=== PATIENT | female | born 1980 | race Caucasian/White ===

== ENCOUNTER 2017-02-18 08:12 | Emergency (ER) | payer SELFPAY ==
--- NOTE | ~2017-02-18 | CR254 ---
[facility] A Service of [facility] & [facility] RADIOLOGY TEXT RESULTS PATIENT: AMISH GUILLERMO LOCATION: [facility] : 82 UNIT #: [id number] AGE: [address]: Julieta Jimenez APRN SEX: F ORDER DR: [id number] [facility] [address] [place], [place] [address] [id number] MR#: [id number] Acc #: [id number] NAME: AMISH GUILLERMO : 1980 SEX: F STUDY DATE/TIME: 02/18/2017 8:29 UNIT: [facility] ROOM: STUDY DESCRIPTION: CR Toe 2 Views 2Nd Lt Attending Physician: Julieta Jimenez A.P.R.N. Ordering Physician: Ed Doctor [id number] [facility] Primary Care Physician: Dylan Romero M.D. MEDICAL IMAGING REPORT This report is preliminary unless electronic signature is present EXAM 3 views of the left second toe. Date: 02/18/2017 HISTORY Left second toe pain yesterday and today after kicking a log. COMPARISON None. FINDINGS No acute displaced fracture is seen and there is no joint dislocation. No retained radiopaque foreign body is seen within the soft tissues. IMPRESSION No acute abnormality of the left second toe. Dictated by... Karol Diaz M.D. THIS IS AN ELECTRONICALLY VERIFIED REPORT Karol Diaz M.D. at 02/21/2017 8:37 AM JORGE A/meka TD: 02/18/2017 10:37 JOB #: [id number] MEDICAL IMAGING REPORT Page 1 of 1 COPY
[~2017-02-18 08:12] MED LIST: AMOXIL400 MG/51 PO; AZITHROMYCIN250 MG PO; FIORINAL CAPSUL1 CAP PO; IBUPROFEN800 MG PO; LORTAB 5/500 TA1 TA1 PO; MACROBID100 MG PO; SILVADENE TOP; TYLENOL #3 PO
== END 2017-02-18 11:12 | disposition home or self-care (01) ==
LOC: CED 08:12
DX: S90.122A Contusion of left lesser toe(s) without damage to nail, initial encounter (principal); F41.9 Anxiety disorder, unspecified; Z86.718 Personal history of other venous thrombosis and embolism; W01.0XXA Fall on same level from slipping, tripping and stumbling without subsequent striking against object, initial encounter; Y92.009 Unspecified place in unspecified non-institutional (private) residence as the place of occurrence of the external cause
CPT/HCPCS: 29550; 73660; 90471; 90715; 99283

== ENCOUNTER 2017-03-15 18:34 | Emergency (ER) | payer OTHER ==
--- NOTE | ~2017-03-15 | EKG ---
PATIENT: AMISH GUILLERMO UNIT #: [id number] Ventricular Rate: 93 BPM Atrial Rate: 93 BPM P-R Interval: 152 ms QRS Duration: 96 ms Q-T Interval: 344 ms QTC Calculation(Bezet): 427 ms P [place]: 27 degrees Calculated R [place]: 23 degrees Calculated T [place]: 9 degrees Diagnosis Line: Normal sinus rhythm Diagnosis Line: Normal ECG Early repolarization Diagnosis Line: When compared with ECG of 30-MAY-2013 22:08, Diagnosis Line: No significant change was found Diagnosis Line: Confirmed by GAURI OVALLE MD ([id number]) on 03/16/2017 Diagnosis Line: 10:05:58 AM INTERPRETING MD: YAMILE ESQUIVEL
[2017-03-15 18:56] LABS: BASOPHIL# 0.1 X10e3 (0-0.3); BASOPHIL% 0.7 % (0-2.5); EOSINOPHIL# 0.1 X10e3 (0-0.7); EOSINOPHIL% 1.3 % (0.0-7.0); HEMATOCRIT 38.1 % (35.0-45.0); HEMOGLOBIN 12.3 gm/dL (12.0-16.0); LYMPHOCYTE# 3.5 X10e3 (1.0-3.5); LYMPHOCYTE% 31.6 % (17.0-45.0); MEAN CELL VOLUME 96.6 FL (83-96); MEAN CORPUSCULAR HEMOGLOBIN 31.3 PG (28-34); MEAN CORPUSCULAR HGB CONC 32.4 g/dL (30-36); MEAN PLATELET VOLUME 10.8 FL (6.5-11.5); MONOCYTE# 0.5 X10e3 (0-1.0); MONOCYTE% 4.1 % (3.0-12.0); NEUTROPHIL# 6.9 X10e3 (1.5-7.1); NEUTROPHIL% 62.3 % (40-75); PLATELET COUNT 218 X10e3 (140-420); RED BLOOD COUNT 3.94 X10e (3.90-5.30); RED CELL DISTRIBUTION WIDTH 13.9 % (11.0-15.5); WHITE BLOOD COUNT 11.1 X10e3 (4.0-10.5)
[2017-03-15 19:00] LABS: DIFF IND NO
[2017-03-15 19:22] LABS: BILIRUBIN, DIRECT 0.2 mg/dL (0.0-0.2); BILIRUBIN,INDIRECT 0.2 mg/dL (0.0-0.9); BILIRUBIN,TOTAL 0.4 mg/dL (0.2-2.0); BUN/CREATININE RATIO 16.66; CREATININE SERUM 0.6 mg/dL (0.6-1.4); GLOM FILT RATE Estimated 118.1 mL/min (>60); POTASSIUM 3.5 mmol/L (3.5-5.1); PROTEIN TOTAL SERUM 7.4 g/dL (6.0-8.3)
[2017-03-15 19:23] LABS: URINE SOURCE CLEAN CATCH
[2017-03-15 19:28] LABS: URINE APPEARANCE CLOUDY; URINE BLOOD NEG (NEG); URINE COLOR DK YELLOW; URINE GLUCOSE NEG (NEG); URINE KETONE TRACE (NEG); URINE LEUKOCYTE ESTERASE TRACE (NEG); URINE NITRATE POS (NEG); URINE PROTEIN TRACE (NEG); URINE SPECIFIC GRAVITY 1.043 (1.003-1.035)
[2017-03-15 19:31] LABS: CULTURE INDICATED? YES; URINE SQUAMOUS EPITHELIAL CELL MOD /[HPF]
[2017-03-15 19:40] LABS: URINE BACTERIA AUWI 3+ (NEGATIVE)
[2017-03-15 20:18] LABS: POC - CKMB <1.0 ng/mL (0.0-7.9); POC - TROPONIN <0.05 ng/mL (<=0.05)
== END 2017-03-15 20:52 | disposition home or self-care (01) ==
LOC: CED 18:34
PROVIDERS: Emergency Medicine
DX: O99.89 Other specified diseases and conditions complicating pregnancy, childbirth and the puerperium (principal); R42 Dizziness and giddiness; R11.0 Nausea; O99.330 Smoking (tobacco) complicating pregnancy, unspecified trimester; F17.200 Nicotine dependence, unspecified, uncomplicated; Z86.718 Personal history of other venous thrombosis and embolism
CPT/HCPCS: 36415; 80048; 80076; 81003; 82553; 84484; 84703; 85025; 87086; 87088; 87186; 93005; 99284